=== PATIENT | female | born 1955 | race American Indian/Alaskan Native ===

== ENCOUNTER 2021-10-25 16:04 | Emergency (ER) | payer OTHER ==
[2021-10-25 16:35] VITALS: BP 150/98
--- NOTE | 2021-10-25 18:46 | Emergency Department Report ---
ED Fall HPI - General Chief Complaint: Fall Stated Complaint: RT SIDE PAIN Time Seen by Provider: 10/25/21 18:26 Source: EMS Mode of arrival: Ambulatory - History of Present Illness Initial Comments: Patient is a 65-year-old female presents emergency room complaints of a fall that occurred prior to arrival. Patient states that she slipped and fell. She was not having any symptoms prior to the fall. She states she fell forward and caught herself with her hands. She is complaining of bilateral hand pain, right wrist pain, left elbow pain. She denies being on any blood thinners. She denies any loss of consciousness, vomiting, vision changes, numbness, weakness. Past medical history of hypertension and borderline diabetes. No allergies to medications. - Related Data Previous Rx's Medication Instructions Recorded Last Taken Type Albuterol Mdi (or & Nicu Only) 2 puff IH QID PRN #1 pump 12/25/15 Unknown Rx [ProAir HFA Inhaler] Hydralazine HCl [Apresoline TAB] 50 mg PO Q8HR #90 tab 12/25/15 Unknown Rx Prednisone [predniSONE 5 mg (6-Day 5 mg PO .TAPER #1 tab.ds.pk 12/25/15 Unknown Rx Pack, 21 Tabs)] amLODIPine [Norvasc] 10 mg PO DAILY #30 tab 12/25/15 Unknown Rx Acetaminophen [Tylenol] 650 mg PO Q8HR PRN #20 cap 10/25/21 Unknown Rx Allergies Allergy/AdvReac Type Severity Reaction Status Date / Time No Known Allergies Allergy Unverified 12/24/15 06:33 ED Review of Systems ROS: Stated complaint: RT SIDE PAIN Other details as noted in HPI Comment: All other systems reviewed and negative ED Past Medical Hx - Past Medical History Hx Hypertension: Yes Hx Congestive Heart Failure: No Hx Diabetes: Yes Hx Asthma: No Hx COPD: No - Surgical History Past Surgical History?: No Additional Surgical History: Left Oophorectomy - Social History Smoking Status: Never Smoker - Medications Home Medications: Home Medications Medication Instructions Recorded Confirmed Last Taken Type Albuterol Mdi (or & Nicu Only) 2 puff IH QID PRN #1 pump 12/25/15 Unknown Rx [ProAir HFA Inhaler] Hydralazine HCl [Apresoline TAB] 50 mg PO Q8HR #90 tab 12/25/15 Unknown Rx Prednisone [predniSONE 5 mg (6-Day 5 mg PO .TAPER #1 tab.ds.pk 12/25/15 Unknown Rx Pack, 21 Tabs)] amLODIPine [Norvasc] 10 mg PO DAILY #30 tab 12/25/15 Unknown Rx Acetaminophen [Tylenol] 650 mg PO Q8HR PRN #20 cap 10/25/21 Unknown Rx ED Physical Exam - General Limitations: No Limitations General appearance: alert, in no apparent distress - Head Head exam: Present: atraumatic, normocephalic - Eye Eye exam: Present: normal appearance - ENT ENT exam: Present: mucous membranes moist - Respiratory Respiratory exam: Absent: respiratory distress, accessory muscle use - Extremities Exam Extremities exam: Present: other (mild ttp to the bilateral hands, no deformities, no other bony ttp of the BUE, FROM of the BUE, neurovascularly intact) - Neurological Exam Neurological exam: Present: alert, oriented X3, CN II-XII intact, normal gait. Absent: motor sensory deficit - Psychiatric Psychiatric exam: Present: normal affect, normal mood - Skin Skin exam: Present: warm, dry, intact ED Course Vital Signs 10/25/21 16:34 Temperature 98.1 F Pulse Rate 86 Respiratory 16 Rate Blood Pressure 150/98 [Left] O2 Sat by Pulse 96 Oximetry ED Medical Decision Making - Radiology Data Radiology results: report reviewed Ordering Physician: HAYDEE GRACIA Date of Service: 10/25/21 Procedure(s): XR elbow 3+V LT Accession Number(s): [id number] cc: HAYDEE GRACIA Fluoro Time In Minutes: LEFT ELBOW 3 VIEW(S) INDICATION / CLINICAL INFORMATION: fall, left elbow pain COMPARISON: None available. FINDINGS: BONES / JOINT(S): There is a small ossification along the medial epicondyle which could represent a tiny avulsion fracture. This may represent enthesopathic change. No dislocation is seen. No fracture is seen in the elbow otherwise. Joint spaces are maintained. No significant arthritis. SOFT TISSUES: The fat pads are not displaced. ADDITIONAL FINDINGS: None. Signer Name: Shon Walker MD Signed: 10/25/2021 7:26 PM Workstation Name: [id number] Transcribed By: SS Dictated By: Shon Walker MD Electronically Authenticated By: Shon Walker MD Signed Date/Time: 10/25/211925 DD/ 21 TD/TT: Ordering Physician: HAYDEE GRACIA Date of Service: 10/25/21 Procedure(s): XR hand BILAT 3+V Accession Number(s): [id number] cc: HAYDEE GRACIA Fluoro Time In Minutes: BILATERAL HAND 3 VIEW(S) INDICATION / CLINICAL INFORMATION: fall, bilateral hand pain COMPARISON: None available. FINDINGS: BONES / JOINT(S): No acute fracture or subluxation. No significant arthritis. 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 SOFT TISSUES: No significant abnormality. ADDITIONAL FINDINGS: None. Signer Name: Shon Walker MD Signed: 10/25/2021 7:09 PM Workstation Name: [id number] Transcribed By: Dictated By: Shon Walker MD Electronically Authenticated By: Shon Walker MD Signed Date/Time: 10/25/211908 DD/ 07 TD/TT: Ordering Physician: HAYDEE GRACIA Date of Service: 10/25/21 Procedure(s): XR wrist 3+V RT Accession Number(s): [id number] cc: HAYDEE GRACIA Fluoro Time In Minutes: RIGHT WRIST 3 VIEW(S) INDICATION / CLINICAL INFORMATION: fall, right wrist pain COMPARISON: None available. FINDINGS: BONES / JOINT(S): No acute fracture or subluxation. No significant arthritis. SOFT TISSUES: No significant abnormality. ADDITIONAL FINDINGS: None. Signer Name: Shon Walker MD Signed: 10/25/2021 7:08 PM Workstation Name: [id number] Transcribed By: Dictated By: Shon Walker MD Electronically Authenticated By: Shon Walker MD Signed Date/Time: 10/25/211907 DD/ 05 TD/TT: - Medical Decision Making Patient is a 65-year-old female presents emergency room complaints of a fall that occurred prior to arrival. Patient states that she slipped and fell. She was not having any symptoms prior to the fall. She states she fell forward and caught herself with her hands. She is complaining of bilateral hand pain, right wrist pain, left elbow pain. She denies being on any blood thinners. She denies any loss of consciousness, vomiting, vision changes, numbness, weakness. Past medical history of hypertension and borderline diabetes. No allergies to medications. VSS. on exam: mild ttp to the bilateral hands, no deformities, no other bony ttp of the BUE, FROM of the BUE, neurovascularly intact. XR left elbow: BONES / JOINT(S): There is a small ossification along the medial epicondyle which could represent a tiny avulsion fracture. This may represent enthesopathic change. No dislocation is seen. No fracture is seen in the elbow otherwise. Joint spaces are maintained. No significant arthritis. SOFT TISSUES: The fat pads are not displaced. ADDITIONAL FINDINGS: None. XR bilateral hand: BONES / JOINT(S): No acute fracture or subluxation. No significant arthritis. 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 SOFT TISSUES: No significant abnormality. ADDITIONAL FINDINGS: None. XR right wrist: BONES / JOINT(S): No acute fracture or subluxation. No significant arthritis. SOFT TISSUES: No significant abnormality. ADDITIONAL FINDINGS: None. XR elbow shows possible fx, could be secondary to arthritis, the fat pads are normal, I believe fracture is less likely, will splint and have pt follow up with orthopedic. advised pt Please take medication as prescribed as needed. Please follow-up with orthopedic doctor. There is a small lucency on your elbow x-ray which could be from arthritis but given that you have had a fall could be due to a small fracture. Return to emergency room for any new or worse symptoms. Critical care attestation.: If time is entered above; I have spent that time in minutes in the direct care of this critically ill patient, excluding procedure time. ED Disposition Clinical Impression: Left elbow pain, Right wrist pain Fall Qualifiers: Encounter type: initial encounter Qualified Code(s): W19.XXXA - Unspecified fall, initial encounter Hand pain Qualifiers: Laterality: bilateral Qualified Code(s): M79.641 - Pain in right hand Disposition: 01 HOME / SELF CARE / HOMELESS Is pt being admited?: No Does the pt Need Aspirin: No Condition: Stable Instructions: Musculoskeletal Pain Additional Instructions: Please take medication as prescribed as needed. Please follow-up with orthopedic doctor. There is a small lucency on your elbow x-ray which could be from arthritis but given that you have had a fall could be due to a small fracture. Return to emergency room for any new or worse symptoms. Prescriptions: Acetaminophen [Tylenol] 650 mg PO Q8HR PRN #20 cap PRN Reason: pain Referrals: KIERAN BLAIR [Other] - 3-5 Days SHELLEY VALDIVIA MD [Staff Physician] - 3-5 Days Time of Disposition: 19:40 Print Language: TAMAZIGHT
--- NOTE | 2021-10-25 19:12 | XRay Report ---
RIGHT WRIST 3 VIEW(S) INDICATION / CLINICAL INFORMATION: fall, right wrist pain COMPARISON: None available. FINDINGS: BONES / JOINT(S): No acute fracture or subluxation. No significant arthritis. SOFT TISSUES: No significant abnormality. ADDITIONAL FINDINGS: None. Signer Name: Shon Walker MD Signed: 10/25/2021 7:08 PM Workstation Name: [id number]
--- NOTE | 2021-10-25 19:14 | XRay Report ---
BILATERAL HAND 3 VIEW(S) INDICATION / CLINICAL INFORMATION: fall, bilateral hand pain COMPARISON: None available. FINDINGS: BONES / JOINT(S): No acute fracture or subluxation. No significant arthritis. The fourth and fifth me tacarpals are congenitally small. SOFT TISSUES: No significant abnormality. ADDITIONAL FINDINGS: None. Signer Name: Shon Walker MD Signed: 10/25/2021 7:09 PM Workstation Name: [id number]
--- NOTE | 2021-10-25 19:30 | XRay Report ---
LEFT ELBOW 3 VIEW(S) INDICATION / CLINICAL INFORMATION: fall, left elbow pain COMPARISON: None available. FINDINGS: BONES / JOINT(S): There is a small ossification along the medial epicondyle which could represent a t iny avulsion fracture. This may represent enthesopathic change. No dislocation is seen. No fracture i s seen in the elbow otherwise. Joint spaces are maintained. No significant arthritis. SOFT TISSUES: The fat pads are not displaced. ADDITIONAL FINDINGS: None. Signer Name: Shon Walker MD Signed: 10/25/2021 7:26 PM Workstation Name: [id number]
== END 2021-10-25 21:02 | disposition home or self-care (01) ==
LOC: ED 16:04
DX: M79.642 Pain in left hand (principal); M79.641 Pain in right hand; M25.531 Pain in right wrist; M25.522 Pain in left elbow; W19.XXXA Unspecified fall, initial encounter; Y93.89 Activity, other specified; Y92.89 Other specified places as the place of occurrence of the external cause; Y99.8 Other external cause status; I10 Essential (primary) hypertension; J45.909 Unspecified asthma, uncomplicated
CPT/HCPCS: 99283